=== PATIENT | female | born 1965 | race Caucasian/White ===

== ENCOUNTER 2018-02-12 16:58 | Emergency (ER) | payer MEDICAID ==
[~2018-02-12] VITALS: Ht 162.6 cm; Wt 123.8 kg
[2018-02-12 17:10] VITALS: Ht 162.6 cm; Wt 123.8 kg
[2018-02-12 20:02] VITALS: BP 184/125
== END 2018-02-12 20:02 | disposition home or self-care (01) ==
LOC: ED 16:58
DX: S20.211A Contusion of right front wall of thorax, initial encounter (principal); S60.221A Contusion of right hand, initial encounter; Z91.041 Radiographic dye allergy status; I10 Essential (primary) hypertension; W01.0XXA Fall on same level from slipping, tripping and stumbling without subsequent striking against object, initial encounter; Y93.89 Activity, other specified; Y92.89 Other specified places as the place of occurrence of the external cause; Y99.8 Other external cause status
CPT/HCPCS: J1885